=== PATIENT | female | born 1960 | race African-American/Black ===

== ENCOUNTER 2022-10-28 13:38 | Inpatient (IN) | payer MEDICAID ==
[~2022-10-28] VITALS: Ht 160 cm; Wt 95.9 kg
[~2022-10-28 13:38] MED LIST: ALBU0.0912 INH; AMLO5TAB PO; BECL10.62 INH; CALC-1646 PO; LOSA-272 PO; METF-346 PO; MULT-2253 PO; PRED20TA5 PO; TAM75 PO
[2022-10-28 13:47] VITALS: BP 142/95; PULSE 80; RESP 22; TEMP 97.9; O2SAT 94
[2022-10-28] MEDS ORDERED: ALBUTEROL 0.083% 2.5 MG/3 ML NEBU INH ONE ×2 (14:00→15:55)
[2022-10-28] MEDS ORDERED: predniSONE 20 MG TAB PO ONE (14:00)
[2022-10-28] MEDS ORDERED: ALBUTEROL SULFATE/IPRATROPIU 3 ML SOL IH ONE (14:00)
[2022-10-28 14:11] VITALS: PULSE 71; RESP 20; O2SAT 93
[2022-10-28] MEDS ORDERED: IPRATROPIUM 0.02% 0.5 MG/2.5 ML NEBU INH ONE (15:55)
[2022-10-28] MEDS ORDERED: MAG SULF 2000 MG/WATER PREMIX 50 ML IV ONE (15:55)
[2022-10-28] MEDS ORDERED: methylPREDNISolone SS 125 MG/2 ML VIAL IVP ONE (15:55)
[2022-10-28] MEDS ORDERED: NACL 0.9% 1,000 ML IV ONE (15:55)
[2022-10-28 17:01] LABS: BASOPHILS % (AUTO) 0.6 % (0.0-2.0); EOSINOPHILS # (AUTO) 0.2 K/uL (0-0.4); EOSINOPHILS % (AUTO) 2.2 % (0.0-4.0); HEMATOCRIT 40.2 % (36-48); HEMOGLOBIN 13.3 g/dL (12.0-16.0); LYMPHOCYTES # (AUTO) 0.8 K/uL (2.5-16.5); LYMPHOCYTES % (AUTO) 11.6 % (20.5-51.1); MEAN CORPUSCULAR HEMOGLOBIN 29 pg (27-31); MEAN CORPUSCULAR HGB CONC 33 g/dL (33-37); MEAN CORPUSCULAR VOLUME 88.3 fL (80-94); MONOCYTES # (AUTO) 0.2 K/uL (0.8-1.0); MONOCYTES % (AUTO) 2.1 % (1.7-9.3); NEUTROPHILS # (AUTO) 6.1 K/uL (1.8-7.7); NEUTROPHILS % (AUTO) 83.5 % (42.2-75.2); PLATELET COUNT (AUTO) 173 K/uL (140-450); RED BLOOD CELL COUNT(AUTO) 4.55 MIL/uL (4.20-5.40); RED CELL DISTRIBUTION WIDTH 16.2 % (11.6-13.7); WHITE BLOOD COUNT (AUTO) 7.3 K/uL (4.8-10.8)
[2022-10-28 17:24] LABS: ALBUMIN 3.5 g/dL (3.4-5.0); ANION GAP 14.7 (8-16); CALCIUM 8.9 mg/dL (8.5-10.1); CREATININE 1.1 mg/dL (0.6-1.3); POTASSIUM 3.7 mmol/L (3.5-5.1); TOTAL BILIRUBIN 0.2 mg/dL (0.0-1.0); TOTAL PROTEIN, SERUM 7.6 g/dL (6.4-8.2)
[2022-10-28 18:37] VITALS: BP 156/87; PULSE 83; RESP 18; TEMP 96.7
[2022-10-28] MEDS ORDERED: ONDANSETRON 4 MG TAB PO PRN (18:40)
[2022-10-28 18:45] VITALS: PULSE 72; PULSE 73; RESP 18; O2SAT 92
[2022-10-28] MEDS: ALBUTEROL SULFATE/IPRATROPIU 3 ML SOL IH SCH ×2 (18:55→21:56)
[2022-10-28 18:56] LABS: FLU A ANTIGEN negative (NEGATIVE); FLU B ANTIGEN NEGATIVE (NEGATIVE)
[2022-10-28 19:00] VITALS: PULSE 83; RESP 18; O2SAT 94
[2022-10-28 21:56] VITALS: PULSE 84; RESP 16; O2SAT 92
[2022-10-28] MEDS ORDERED: DEXTROSE 50% 50 ML SYR IVP PRN (22:00)
[2022-10-29] VITALS (7 sets, daily range): BP systolic 142–155; BP diastolic 79–92; PULSE 65–88; RESP 16–18; TEMP 97.1–97.6; O2SAT 92–98
[2022-10-29] MEDS: ALBUTEROL SULFATE/IPRATROPIU 3 ML SOL IH SCH ×4 (03:32→13:55)
[2022-10-29] MEDS: INSULIN LISPRO SLIDING SCALE 100 UNITS/ML VIAL SUBQ PRN ×2 (06:31→11:15)
[2022-10-29] MEDS: BLOOD GLUCOSE MONITORING 1 DEV DEV FS SCH ×3 (06:31→15:57)
[2022-10-29 06:37] LABS: BASOPHILS % (AUTO) 0.1 % (0.0-2.0); HEMOGLOBIN 12.3 g/dL (12.0-16.0); LYMPHOCYTES # (AUTO) 0.9 K/uL (2.5-16.5); LYMPHOCYTES % (AUTO) 13.2 % (20.5-51.1); MEAN CORPUSCULAR HEMOGLOBIN 29 pg (27-31); MEAN CORPUSCULAR HGB CONC 33 g/dL (33-37); MEAN CORPUSCULAR VOLUME 88.2 fL (80-94); MONOCYTES # (AUTO) 0.2 K/uL (0.8-1.0); MONOCYTES % (AUTO) 2.6 % (1.7-9.3); NEUTROPHILS % (AUTO) 84.1 % (42.2-75.2); PLATELET COUNT (AUTO) 161 K/uL (140-450); RED BLOOD CELL COUNT(AUTO) 4.19 MIL/uL (4.20-5.40); WHITE BLOOD COUNT (AUTO) 7.2 K/uL (4.8-10.8)
[2022-10-29] MEDS ORDERED: BUDESONIDE 0.25 MG/2 ML NEBU INH SCH (09:00)
[2022-10-29] MEDS ORDERED: LOSARTAN 50 MG TAB PO SCH (09:00)
[2022-10-29] MEDS ORDERED: INSULIN LISPRO 100 UNITS/ML VIAL SUBQ SCH (12:00)
[2022-10-29] MEDS ORDERED: AZITHROMYCIN 250 MG TAB PO SCH (14:00)
[2022-10-29] MEDS ORDERED: BUDE1AER IH (16:01)
[2022-10-29] MEDS ORDERED: SITA25TA3 PO (16:05)
[2022-10-29] MEDS ORDERED: AZIT250T3 PO (16:08)
[2022-10-29] MEDS ORDERED: PRED20TA5 PO (16:09)
[2022-10-31] MEDS ORDERED: INSU100S22 SUBQ (09:48)
[2022-10-31] MEDS ORDERED: GLUC-404 INH (09:53)
== END 2022-10-29 17:10 | disposition home or self-care (01) | DRG 140 ==
LOC: MED 13:38 → MTU 18:04
PROVIDERS: ADMIT Internal Medicine; ATTEND Internal Medicine
DX: J44.1 Chronic obstructive pulmonary disease with (acute) exacerbation (principal); J45.901 Unspecified asthma with (acute) exacerbation; E11.65 Type 2 diabetes mellitus with hyperglycemia; F17.210 Nicotine dependence, cigarettes, uncomplicated; R06.03 Acute respiratory distress; Z20.822 Contact with and (suspected) exposure to COVID-19; T38.0X5A Adverse effect of glucocorticoids and synthetic analogues, initial encounter; I10 Essential (primary) hypertension; Z88.5 Allergy status to narcotic agent; Z79.899 Other long term (current) drug therapy; Y92.89 Other specified places as the place of occurrence of the external cause
CPT/HCPCS: 36415; 71045; 80053; 82948; 83036; 83880; 84484; 85025; 87081; 93005; 94640; 96361; 96374; 96375; 99285; J1815; J2930; J3475; J7512; J7613; J7626

== ENCOUNTER 2022-12-10 01:45 | Inpatient (IN) | payer MEDICAID ==
[~2022-12-10] VITALS: Ht 160 cm; Wt 95.3 kg
[2022-12-10] VITALS (12 sets, daily range): BP systolic 147–151; BP diastolic 80–95; PULSE 75–84; RESP 18–32; TEMP 96.5–97.6; O2SAT 90–98
[~2022-12-10 01:45] MED LIST changes: +AZIT250T3 PO; +BUDE1AER IH; +GLUC-404 INH; +INSU100S22 SUBQ; +SITA25TA3 PO; -TAM75 PO
[2022-12-10] MEDS ORDERED: ALBUTEROL 0.083% 2.5 MG/3 ML NEBU INH ONE (01:50)
[2022-12-10] MEDS ORDERED: predniSONE 20 MG TAB PO ONE (01:50)
[2022-12-10] MEDS ORDERED: ALBUTEROL SULFATE/IPRATROPIU 3 ML SOL IH ONE (01:50)
[2022-12-10] MEDS ORDERED: methylPREDNISolone SS 125 MG/2 ML VIAL IVP ONE (01:55)
[2022-12-10 02:06] LABS: BASOPHILS # (AUTO) 0.1 K/uL (0.00-0.22); BASOPHILS % (AUTO) 1.3 % (0.0-2.0); EOSINOPHILS # (AUTO) 0.5 K/uL (0-0.4); EOSINOPHILS % (AUTO) 6.6 % (0.0-4.0); HEMATOCRIT 39.5 % (36-48); LYMPHOCYTES # (AUTO) 3.2 K/uL (2.5-16.5); LYMPHOCYTES % (AUTO) 44.3 % (20.5-51.1); MEAN CORPUSCULAR HEMOGLOBIN 29 pg (27-31); MEAN CORPUSCULAR HGB CONC 33 g/dL (33-37); MEAN CORPUSCULAR VOLUME 88.7 fL (80-94); MONOCYTES # (AUTO) 0.5 K/uL (0.8-1.0); MONOCYTES % (AUTO) 6.4 % (1.7-9.3); NEUTROPHILS % (AUTO) 41.4 % (42.2-75.2); PLATELET COUNT (AUTO) 173 K/uL (140-450); RED BLOOD CELL COUNT(AUTO) 4.45 MIL/uL (4.20-5.40); RED CELL DISTRIBUTION WIDTH 16.3 % (11.6-13.7); WHITE BLOOD COUNT (AUTO) 7.3 K/uL (4.8-10.8)
[2022-12-10 02:25] LABS: ALANINE AMINOTRANSFERASE 20 U/L (12-78); ALBUMIN 3.6 g/dL (3.4-5.0); ALKALINE PHOSPHATASE 85 U/L (50-136); ANION GAP 11.7 (8-16); ASPARTATE AMINOTRANSFERASE 15 U/L (15-37); CARBON DIOXIDE 30.5 mmol/L (21-32); CHLORIDE 106 mmol/L (98-107); CREATININE 1.1 mg/dL (0.6-1.3); GFR ARICAN-AMERICAN 65 mL/min (>90); GFR NON ARICAN-AMERICAN 53 mL/min (>90); GLUCOSE 130 mg/dL (74-106); POTASSIUM 3.2 mmol/L (3.5-5.1); SODIUM SERUM 145 mmol/L (136-145); TOTAL BILIRUBIN 0.3 mg/dL (0.0-1.0); TOTAL PROTEIN, SERUM 7.6 g/dL (6.4-8.2); UREA NITROGEN, BLOOD 22 mg/dL (7-18)
[2022-12-10] MEDS ORDERED: METF-346 PO (02:53)
[2022-12-10] MEDS ORDERED: DOCUSATE SODIUM 100 MG GELCAP PO PRN (04:10)
[2022-12-10] MEDS ORDERED: POTASSIUM CHLORIDE 10 MEQ TABER PO PRN (04:10)
[2022-12-10] MEDS ORDERED: NACL 0.9% 1,000 ML IV SCH (04:10)
[2022-12-10] MEDS ORDERED: ACETAMINOPHEN 325 MG TAB PO PRN (04:10)
[2022-12-10] MEDS ORDERED: ONDANSETRON 4 MG/2 ML VIAL IM/IVP PRN (04:10)
[2022-12-10] MEDS ORDERED: ZOLPIDEM 5 MG TAB PO PRN (04:10)
[2022-12-10] MEDS: ALBUTEROL SULFATE/IPRATROPIU 3 ML SOL IH PRN ×2 (07:42→18:13)
[2022-12-10] MEDS ORDERED: DEXTROSE 50% 50 ML SYR IVP PRN (07:55)
[2022-12-10] MEDS ORDERED: LOSARTAN 50 MG TAB PO SCH (09:00)
[2022-12-10] MEDS: PANTOPRAZOLE 40 MG TABEC PO SCH (09:48)
[2022-12-10] MEDS: amLODIPine 5 MG TAB PO SCH (09:48)
[2022-12-10] MEDS: INSULIN LANTUS 100 UNITS/ML 10 ML VIAL SUBQ SCH (11:35)
[2022-12-10] MEDS: INSULIN LISPRO SLIDING SCALE 100 UNITS/ML VIAL SUBQ PRN ×2 (11:39→20:53)
[2022-12-10] MEDS: BLOOD GLUCOSE MONITORING 1 DEV DEV FS SCH ×3 (11:43→20:46)
[2022-12-10] MEDS: guaiFENesin DM 200/20 MG-10 ML 10 ML UDC PO PRN ×2 (12:39→20:40)
[2022-12-10] MEDS: metFORMIN 500 MG TAB PO SCH (17:50)
[2022-12-10] MEDS: BUDESONIDE 0.5 MG/2 ML NEBU INH SCH (19:30)
[2022-12-11] VITALS (7 sets, daily range): BP systolic 154–155; BP diastolic 94–98; PULSE 57–71; RESP 16–20; TEMP 96.9–97.5; O2SAT 93–100
[2022-12-11] MEDS: ALBUTEROL SULFATE/IPRATROPIU 3 ML SOL IH PRN (02:57)
[2022-12-11] MEDS: BLOOD GLUCOSE MONITORING 1 DEV DEV FS SCH ×3 (06:39→16:30)
[2022-12-11 07:04] LABS: BASOPHILS % (AUTO) 0.4 % (0.0-2.0); EOSINOPHILS # (AUTO) 0.2 K/uL (0-0.4); HEMOGLOBIN 11.5 g/dL (12.0-16.0); LYMPHOCYTES # (AUTO) 2.3 K/uL (2.5-16.5); LYMPHOCYTES % (AUTO) 28.7 % (20.5-51.1); MEAN CORPUSCULAR HEMOGLOBIN 29 pg (27-31); MEAN CORPUSCULAR HGB CONC 33 g/dL (33-37); MEAN CORPUSCULAR VOLUME 88.2 fL (80-94); MONOCYTES # (AUTO) 0.6 K/uL (0.8-1.0); MONOCYTES % (AUTO) 7.9 % (1.7-9.3); PLATELET COUNT (AUTO) 169 K/uL (140-450); RED BLOOD CELL COUNT(AUTO) 3.97 MIL/uL (4.20-5.40); RED CELL DISTRIBUTION WIDTH 16.3 % (11.6-13.7); WHITE BLOOD COUNT (AUTO) 8.2 K/uL (4.8-10.8)
[2022-12-11 07:09] LABS: CALCIUM 8.1 mg/dL (8.5-10.1); CARBON DIOXIDE 26.1 mmol/L (21-32); POTASSIUM 4.1 mmol/L (3.5-5.1)
[2022-12-11] MEDS: BUDESONIDE 0.5 MG/2 ML NEBU INH SCH (08:08)
[2022-12-11] MEDS: metFORMIN 500 MG TAB PO SCH ×2 (08:33→17:37)
[2022-12-11] MEDS: guaiFENesin DM 200/20 MG-10 ML 10 ML UDC PO PRN ×2 (08:33→15:18)
[2022-12-11] MEDS: PANTOPRAZOLE 40 MG TABEC PO SCH (08:42)
[2022-12-11] MEDS: amLODIPine 5 MG TAB PO SCH (08:42)
[2022-12-11] MEDS: INSULIN LANTUS 100 UNITS/ML 10 ML VIAL SUBQ SCH (08:46)
[2022-12-11] MEDS ORDERED: LOSARTAN 50 MG TAB PO SCH (09:00)
[2022-12-11] MEDS: INSULIN LISPRO SLIDING SCALE 100 UNITS/ML VIAL SUBQ PRN (11:39)
[2022-12-11] MEDS ORDERED: [UNRECOGNIZED DRUG - CODE] MC (12:45)
[2022-12-11] MEDS ORDERED: ALBU3SOL83 IH (12:45)
[2022-12-11] MEDS ORDERED: GUAI-920 PO (12:50)
[2022-12-11] MEDS ORDERED: PRED20TA5 PO (12:50)
[2022-12-11] MEDS ORDERED: methylPREDNISolone SS 40 MG/ML VIAL IVP SCH (14:45)
== END 2022-12-11 18:45 | disposition home or self-care (01) | DRG 140 ==
LOC: MED 01:45 → EDBD 01:45 → MTU 04:13
PROVIDERS: ADMIT Student in an Organized Health Care Education/Training Program; ATTEND Student in an Organized Health Care Education/Training Program
DX: J44.1 Chronic obstructive pulmonary disease with (acute) exacerbation (principal); J96.01 Acute respiratory failure with hypoxia; J45.901 Unspecified asthma with (acute) exacerbation; F17.210 Nicotine dependence, cigarettes, uncomplicated; Z88.5 Allergy status to narcotic agent; Z79.899 Other long term (current) drug therapy
CPT/HCPCS: 36415; 71045; 80048; 80053; 82948; 84484; 85025; 87081; 93005; 94010; 94617; 94640; 96374; 97116; 97163-GP; 99285; J1815; J2920; J2930; J7613; J7626

== ENCOUNTER 2022-12-22 17:29 | Inpatient (IN) | payer MEDICAID ==
[~2022-12-22] VITALS: Ht 162.6 cm; Wt 96.6 kg
[~2022-12-22 17:29] MED LIST changes: +ALBU3SOL83 IH; -AZIT250T3 PO; -CALC-1646 PO; +GUAI-920 PO; +[UNRECOGNIZED DRUG - CODE] MC
[2022-12-22 17:30] VITALS: BP 160/93; PULSE 98; RESP 29; TEMP 97.7; O2SAT 99
[2022-12-22] MEDS ORDERED: methylPREDNISolone SS 125 MG/2 ML VIAL ONE (17:32)
[2022-12-22] MEDS ORDERED: MAG SULF 2000 MG/WATER PREMIX 50 ML IV ONE ×2 (17:32→17:35)
[2022-12-22] MEDS ORDERED: IPRATROPIUM 0.02% 0.5 MG/2.5 ML NEBU INH ONE (17:35)
[2022-12-22] MEDS ORDERED: ALBUTEROL 0.083% 2.5 MG/3 ML NEBU INH ONE (17:35)
[2022-12-22] MEDS ORDERED: methylPREDNISolone SS 125 MG/2 ML VIAL IVP ONE (17:35)
[2022-12-22 17:37] VITALS: PULSE 101; RESP 33; O2SAT 96
[2022-12-22 17:51] LABS: BASOPHILS # (AUTO) 0.1 K/uL (0.00-0.22); BASOPHILS % (AUTO) 0.6 % (0.0-2.0); EOSINOPHILS # (AUTO) 0.5 K/uL (0-0.4); EOSINOPHILS % (AUTO) 3.8 % (0.0-4.0); HEMATOCRIT 39.9 % (36-48); HEMOGLOBIN 13.2 g/dL (12.0-16.0); LYMPHOCYTES # (AUTO) 4.2 K/uL (2.5-16.5); LYMPHOCYTES % (AUTO) 32.3 % (20.5-51.1); MEAN CORPUSCULAR HEMOGLOBIN 29 pg (27-31); MEAN CORPUSCULAR HGB CONC 33 g/dL (33-37); MEAN CORPUSCULAR VOLUME 88.2 fL (80-94); MONOCYTES # (AUTO) 0.9 K/uL (0.8-1.0); NEUTROPHILS # (AUTO) 7.4 K/uL (1.8-7.7); NEUTROPHILS % (AUTO) 56.3 % (42.2-75.2); PLATELET COUNT (AUTO) 183 K/uL (140-450); RED BLOOD CELL COUNT(AUTO) 4.52 MIL/uL (4.20-5.40); RED CELL DISTRIBUTION WIDTH 16.1 % (11.6-13.7); WHITE BLOOD COUNT (AUTO) 13.1 K/uL (4.8-10.8)
[2022-12-22 18:07] LABS: FLU A ANTIGEN negative (NEGATIVE); FLU B ANTIGEN negative (NEGATIVE)
[2022-12-22] MEDS ORDERED: AZITHROMYCIN 500 MG in DEXTROSE 5% 250 ML IV ONE (18:10)
[2022-12-22 18:21] LABS: ALBUMIN 3.7 g/dL (3.4-5.0); ANION GAP 15.1 (8-16); CALCIUM 9.2 mg/dL (8.5-10.1); CARBON DIOXIDE 27.7 mmol/L (21-32); CREATININE 1.7 mg/dL (0.6-1.3); POTASSIUM 3.8 mmol/L (3.5-5.1); TOTAL BILIRUBIN 0.3 mg/dL (0.0-1.0); TOTAL PROTEIN, SERUM 7.5 g/dL (6.4-8.2)
[2022-12-22] MEDS ORDERED: cefTRIAXone 1,000 MG VIAL ONE (18:35)
[2022-12-22] MEDS ORDERED: AZITHROMYCIN 500 MG INJ VIAL IV ONE (18:36)
[2022-12-22] MEDS ORDERED: NACL 0.9% 2,000 ML IV ONE (18:45)
[2022-12-22 20:15] LABS: LACTIC ACID 1.6 mmol/L (0.4-2.0)
[2022-12-22] MEDS ORDERED: ALBUTEROL SULFATE/IPRATROPIU 3 ML SOL IH ONE (21:25)
[2022-12-22 21:27] VITALS: PULSE 83; RESP 18; O2SAT 95
[2022-12-22] MEDS ORDERED: POTASSIUM CHLORIDE 10 MEQ TABER PO PRN (21:55)
[2022-12-22] MEDS ORDERED: ALBUTEROL SULFATE/IPRATROPIU 3 ML SOL IH PRN (21:55)
[2022-12-22] MEDS ORDERED: DOCUSATE SODIUM 100 MG GELCAP PO PRN (21:55)
[2022-12-22] MEDS ORDERED: NACL 0.9% 1,000 ML IV SCH (21:55)
[2022-12-22] MEDS ORDERED: ONDANSETRON 4 MG/2 ML VIAL IM/IVP PRN (21:55)
[2022-12-22] MEDS ORDERED: ZOLPIDEM 5 MG TAB PO PRN (21:55)
[2022-12-22] MEDS ORDERED: ACETAMINOPHEN 325 MG TAB PO PRN (21:55)
[2022-12-22] MEDS ORDERED: INSU100S22 SUBQ (22:40)
[2022-12-22 22:47] VITALS: PULSE 73; RESP 22; O2SAT 95
[2022-12-22 22:50] VITALS: BP 143/79; PULSE 73; RESP 22; TEMP 97; O2SAT 95
[2022-12-22 22:52] VITALS: PULSE 94
[2022-12-23] VITALS (13 sets, daily range): BP systolic 140–165; BP diastolic 80–97; PULSE 68–85; RESP 16–24; TEMP 96.9–97.9; O2SAT 94–99
[2022-12-23 05:44] LABS: ALBUMIN 3.2 g/dL (3.4-5.0); CALCIUM 8.3 mg/dL (8.5-10.1); CARBON DIOXIDE 24.2 mmol/L (21-32); CREATININE 1.3 mg/dL (0.6-1.3); POTASSIUM 4.2 mmol/L (3.5-5.1); TOTAL BILIRUBIN 0.2 mg/dL (0.0-1.0); TOTAL PROTEIN, SERUM 6.9 g/dL (6.4-8.2)
[2022-12-23 05:47] LABS: BASOPHILS % (AUTO) 0.1 % (0.0-2.0); HEMOGLOBIN 12.1 g/dL (12.0-16.0); LYMPHOCYTES # (AUTO) 0.6 K/uL (2.5-16.5); LYMPHOCYTES % (AUTO) 8.5 % (20.5-51.1); MEAN CORPUSCULAR HEMOGLOBIN 30 pg (27-31); MEAN CORPUSCULAR HGB CONC 33 g/dL (33-37); MONOCYTES # (AUTO) 0.1 K/uL (0.8-1.0); MONOCYTES % (AUTO) 0.8 % (1.7-9.3); NEUTROPHILS # (AUTO) 6.9 K/uL (1.8-7.7); NEUTROPHILS % (AUTO) 90.6 % (42.2-75.2); PLATELET COUNT (AUTO) 168 K/uL (140-450); RED BLOOD CELL COUNT(AUTO) 4.12 MIL/uL (4.20-5.40); RED CELL DISTRIBUTION WIDTH 16.3 % (11.6-13.7); WHITE BLOOD COUNT (AUTO) 7.6 K/uL (4.8-10.8)
[2022-12-23] MEDS: ALBUTEROL SULFATE/IPRATROPIU 3 ML SOL IH SCH ×3 (08:01→18:55)
[2022-12-23] MEDS ORDERED: AZITHROMYCIN 250 MG TAB PO SCH (09:00)
[2022-12-23] MEDS ORDERED: DEXTROSE 50% 50 ML SYR IVP PRN (09:10)
[2022-12-23] MEDS: PANTOPRAZOLE 40 MG TABEC PO SCH (10:14)
[2022-12-23] MEDS: INSULIN LANTUS 100 UNITS/ML 10 ML VIAL SUBQ SCH (10:17)
[2022-12-23] MEDS: amLODIPine 5 MG TAB PO SCH (10:20)
[2022-12-23] MEDS: LOSARTAN 50 MG TAB PO SCH (10:20)
[2022-12-23] MEDS: BLOOD GLUCOSE MONITORING 1 DEV DEV FS SCH ×3 (11:30→20:30)
[2022-12-23] MEDS: INSULIN LISPRO SLIDING SCALE 100 UNITS/ML VIAL SUBQ PRN ×2 (13:44→17:08)
[2022-12-23] MEDS: BUDESONIDE 0.25 MG/2 ML NEBU INH SCH ×2 (13:49→19:07)
[2022-12-24] VITALS (12 sets, daily range): BP systolic 139–165; BP diastolic 77–97; PULSE 60–85; RESP 18–26; TEMP 97.6–98.2; O2SAT 93–99
[2022-12-24 05:36] LABS: BASOPHILS % (AUTO) 0.3 % (0.0-2.0); EOSINOPHILS # (AUTO) 0.1 K/uL (0-0.4); EOSINOPHILS % (AUTO) 1.7 % (0.0-4.0); HEMATOCRIT 33.9 % (36-48); HEMOGLOBIN 11.3 g/dL (12.0-16.0); LYMPHOCYTES % (AUTO) 26.6 % (20.5-51.1); MEAN CORPUSCULAR HEMOGLOBIN 30 pg (27-31); MEAN CORPUSCULAR HGB CONC 33 g/dL (33-37); MEAN CORPUSCULAR VOLUME 89.6 fL (80-94); MONOCYTES # (AUTO) 0.5 K/uL (0.8-1.0); MONOCYTES % (AUTO) 6.7 % (1.7-9.3); NEUTROPHILS # (AUTO) 4.9 K/uL (1.8-7.7); NEUTROPHILS % (AUTO) 64.7 % (42.2-75.2); PLATELET COUNT (AUTO) 165 K/uL (140-450); RED BLOOD CELL COUNT(AUTO) 3.79 MIL/uL (4.20-5.40); WHITE BLOOD COUNT (AUTO) 7.6 K/uL (4.8-10.8)
[2022-12-24 05:52] LABS: ANION GAP 12.5 (8-16); CREATININE 1.2 mg/dL (0.6-1.3); POTASSIUM 3.5 mmol/L (3.5-5.1)
[2022-12-24] MEDS: BLOOD GLUCOSE MONITORING 1 DEV DEV FS SCH ×4 (07:01→20:32)
[2022-12-24] MEDS: BUDESONIDE 0.25 MG/2 ML NEBU INH SCH ×2 (07:50→19:39)
[2022-12-24] MEDS: ALBUTEROL SULFATE/IPRATROPIU 3 ML SOL IH SCH ×3 (07:50→19:32)
[2022-12-24] MEDS ORDERED: PANTOPRAZOLE 40 MG INJ VIAL IVP SCH (09:00)
[2022-12-24] MEDS: methylPREDNISolone SS 40 MG/ML VIAL IVP SCH ×2 (09:35→20:33)
[2022-12-24] MEDS: amLODIPine 5 MG TAB PO SCH (09:35)
[2022-12-24] MEDS: LOSARTAN 50 MG TAB PO SCH ×2 (09:35→22:00)
[2022-12-24] MEDS: DOXYCYCLINE 100 MG CAP PO SCH ×2 (09:35→20:33)
[2022-12-24] MEDS: PANTOPRAZOLE 40 MG TABEC PO SCH (09:35)
[2022-12-24] MEDS: ENOXAPARIN 40 MG/0.4 ML SYR SUBQ SCH (09:38)
[2022-12-24] MEDS: INSULIN LANTUS 100 UNITS/ML 10 ML VIAL SUBQ SCH (09:43)
[2022-12-24] MEDS: INSULIN LISPRO SLIDING SCALE 100 UNITS/ML VIAL SUBQ PRN ×2 (11:53→17:53)
[2022-12-24] MEDS: guaiFENesin DM 200/20 MG-10 ML 10 ML UDC PO PRN ×2 (14:50→22:01)
[2022-12-24] MEDS ORDERED: LOSARTAN 50 MG TAB ONE (21:54)
[2022-12-25] VITALS: BP 145/76; PULSE 65; PULSE 68; RESP 18; TEMP 97.1; O2SAT 99
[2022-12-25 04:00] VITALS: BP 142/82; PULSE 65; PULSE 69; RESP 18; TEMP 98.4; O2SAT 97
[2022-12-25 06:03] LABS: ANION GAP 15.3 (8-16); CALCIUM 7.8 mg/dL (8.5-10.1); CARBON DIOXIDE 23.2 mmol/L (21-32); CREATININE 1.1 mg/dL (0.6-1.3); POTASSIUM 4.5 mmol/L (3.5-5.1)
[2022-12-25] MEDS: BLOOD GLUCOSE MONITORING 1 DEV DEV FS SCH (06:34)
[2022-12-25] MEDS: INSULIN LISPRO SLIDING SCALE 100 UNITS/ML VIAL SUBQ PRN (06:39)
[2022-12-25 07:55] VITALS: PULSE 60; RESP 24; O2SAT 98
[2022-12-25] MEDS: BUDESONIDE 0.25 MG/2 ML NEBU INH SCH (07:57)
[2022-12-25] MEDS: ALBUTEROL SULFATE/IPRATROPIU 3 ML SOL IH SCH (07:57)
[2022-12-25 08:00] VITALS: BP 158/82; PULSE 62; PULSE 64; RESP 18; TEMP 97.6; O2SAT 97; O2SAT 99
[2022-12-25 08:05] VITALS: PULSE 62; RESP 22; O2SAT 100
[2022-12-25] MEDS: PANTOPRAZOLE 40 MG TABEC PO SCH (08:30)
[2022-12-25] MEDS: DOXYCYCLINE 100 MG CAP PO SCH (08:31)
[2022-12-25] MEDS: methylPREDNISolone SS 40 MG/ML VIAL IVP SCH (08:31)
[2022-12-25] MEDS: ENOXAPARIN 40 MG/0.4 ML SYR SUBQ SCH (08:31)
[2022-12-25] MEDS: LOSARTAN 50 MG TAB PO SCH (08:31)
[2022-12-25] MEDS: amLODIPine 5 MG TAB PO SCH (08:31)
[2022-12-25] MEDS: INSULIN LANTUS 100 UNITS/ML 10 ML VIAL SUBQ SCH (08:32)
[2022-12-25] MEDS ORDERED: ALBU0.0912 INH (09:55)
[2022-12-25] MEDS ORDERED: DOXY-690 PO (09:55)
[2022-12-25] MEDS ORDERED: PRED20TA5 PO (09:55)
== END 2022-12-25 12:00 | disposition home or self-care (01) | DRG 140 ==
LOC: MED 17:29 → MTU 21:56
PROVIDERS: ADMIT Student in an Organized Health Care Education/Training Program; ATTEND Student in an Organized Health Care Education/Training Program
DX: J44.1 Chronic obstructive pulmonary disease with (acute) exacerbation (principal); J96.01 Acute respiratory failure with hypoxia; R65.11 Systemic inflammatory response syndrome (SIRS) of non-infectious origin with acute organ dysfunction; N17.9 Acute kidney failure, unspecified; J45.901 Unspecified asthma with (acute) exacerbation; F17.210 Nicotine dependence, cigarettes, uncomplicated; I10 Essential (primary) hypertension; Z20.822 Contact with and (suspected) exposure to COVID-19; E11.9 Type 2 diabetes mellitus without complications; Z79.899 Other long term (current) drug therapy; Z88.5 Allergy status to narcotic agent; Z88.8 Allergy status to other drugs, medicaments and biological substances
CPT/HCPCS: 36415; 71045; 80048; 80053; 83605; 83880; 84484; 85025; 87081; 93005; 94010; 94640; 96365; 96367; 99291; C9113; J0456; J0696; J1650; J1815; J2920; J2930; J3475; J7626

== ENCOUNTER 2023-09-17 20:04 | Inpatient (IN) | payer MEDICAID ==
[~2023-09-17] VITALS: Ht 162.6 cm; Wt 104.3 kg
[~2023-09-17 20:04] MED LIST changes: -ALBU0.0912 INH; +ALBU2.5V NEB; +AMLO-3 PO; -AMLO5TAB PO; -BUDE1AER IH; +FLAS1KIT3; -GUAI-920 PO; +LEVO750T75 PO; -LOSA-272 PO; +LOSA100T52 PO; +METF-1139 PO; -METF-346 PO; +PANT40EC56 PO; +TAM75 PO; -[UNRECOGNIZED DRUG - CODE] MC
[2023-09-17 20:17] VITALS: BP 156/94; PULSE 80; RESP 22; TEMP 98.8; O2SAT 94
[2023-09-17 20:27] VITALS: PULSE 78; PULSE 79; RESP 17; RESP 20; O2SAT 93
[2023-09-17] MEDS: ALBUTEROL 0.083% 2.5 MG/3 ML NEBU INH ONE ×2 (20:27→22:29)
[2023-09-17 20:28] VITALS: O2SAT 98
[2023-09-17] MEDS ORDERED: CEFEPIME 1,000 MG VIAL ONE (21:02)
[2023-09-17] MEDS ORDERED: AZITHROMYCIN 500 MG INJ VIAL IV ONE (21:03)
[2023-09-17 21:37] LABS: ANION GAP 14.5 (8-16); CARBON DIOXIDE 26.7 mmol/L (21-32); CREATININE 1.1 mg/dL (0.6-1.3); POTASSIUM 3.2 mmol/L (3.5-5.1)
[2023-09-17 21:41] LABS: BILIRUBIN,DIRECT 0.1 mg/dL (0.0-0.3); TOTAL BILIRUBIN 0.4 mg/dL (0.0-1.0); TOTAL PROTEIN, SERUM 7.6 g/dL (6.4-8.2)
[2023-09-17] MEDS ORDERED: WATER STERILE 10 ML MC ONE (21:41)
[2023-09-17] MEDS ORDERED: methylPREDNISolone SS 125 MG/2 ML VIAL ONE (21:41)
[2023-09-17 21:46] LABS: BASOPHILS % (AUTO) 0.2 % (0.0-2.0); EOSINOPHILS % (AUTO) 0.5 % (0.0-4.0); HEMATOCRIT 34.3 % (36-48); HEMOGLOBIN 11.3 g/dL (12.0-16.0); LYMPHOCYTES # (AUTO) 1.5 K/uL (2.5-16.5); MEAN CORPUSCULAR HEMOGLOBIN 28 pg (27-31); MEAN CORPUSCULAR HGB CONC 33 g/dL (33-37); MEAN CORPUSCULAR VOLUME 85.7 fL (80-94); MONOCYTES # (AUTO) 0.3 K/uL (0.8-1.0); MONOCYTES % (AUTO) 8.8 % (1.7-9.3); NEUTROPHILS % (AUTO) 51.5 % (42.2-75.2); PLATELET COUNT (AUTO) 126 K/uL (140-450); RED BLOOD CELL COUNT(AUTO) 4.01 MIL/uL (4.20-5.40); RED CELL DISTRIBUTION WIDTH 16.6 % (11.6-13.7)
[2023-09-17] MEDS: MAG SULF 2000 MG/WATER PREMIX 50 ML IV ONE (21:47)
[2023-09-17] MEDS: CEFEPIME 1,000 MG in DEXTROSE 5% 50 ML IV ONE (21:48)
[2023-09-17] MEDS: methylPREDNISolone SS 125 MG in WATER STERILE 2 ML IVP SCH (21:49)
[2023-09-17] MEDS: AZITHROMYCIN 500 MG in DEXTROSE 5% 250 ML IV ONE (21:49)
[2023-09-17] MEDS ORDERED: ALBUTEROL 0.083% 2.5 MG/3 ML NEBU INH ONE (22:27)
[2023-09-17] MEDS ORDERED: AMLO5TAB PO (22:31)
[2023-09-17] MEDS ORDERED: LOSA-272 PO (22:31)
[2023-09-17] MEDS ORDERED: CALC-1646 PO (22:31)
[2023-09-17] MEDS ORDERED: METF-1139 PO (22:31)
[2023-09-17] MEDS ORDERED: NOVN SUBQ (22:32)
[2023-09-17 22:36] VITALS: PULSE 64; RESP 24; O2SAT 94
[2023-09-17] MEDS ORDERED: ACETAMINOPHEN 325 MG TAB PO PRN (22:45)
[2023-09-17] MEDS ORDERED: guaiFENesin DM 200/20 MG-10 ML 10 ML UDC PO PRN (22:45)
[2023-09-17] MEDS ORDERED: DOCUSATE SODIUM 100 MG GELCAP PO PRN (22:45)
[2023-09-17] MEDS ORDERED: HYDROcodone/APAP 7.5/325 MG 1 TAB PO PRN (22:45)
[2023-09-17] MEDS ORDERED: ALBUTEROL SULFATE/IPRATROPIU 3 ML SOL IH PRN (22:45)
[2023-09-17] MEDS ORDERED: ONDANSETRON 4 MG/2 ML VIAL IM/IVP PRN (22:45)
[2023-09-17] MEDS ORDERED: ZOLPIDEM 5 MG TAB PO PRN (22:45)
[2023-09-17] MEDS ORDERED: DEXTROSE 50% 50 ML SYR IVP PRN (22:55)
[2023-09-17 23:26] LABS: FLU A ANTIGEN negative (NEGATIVE); FLU B ANTIGEN NEGATIVE (NEGATIVE)
[2023-09-17] MEDS: NACL 0.9% 1,000 ML IV SCH (23:43)
[2023-09-17] MEDS: POTASSIUM CHLORIDE 10 MEQ TABER PO PRN (23:52)
[2023-09-18] VITALS (13 sets, daily range): BP systolic 123–151; BP diastolic 75–93; PULSE 61–82; RESP 14–20; TEMP 96.8–98.2; O2SAT 93–98
[2023-09-18] MEDS: ALBUTEROL 0.083% 2.5 MG/3 ML NEBU INH SCH (01:43)
[2023-09-18] MEDS: BLOOD GLUCOSE MONITORING 1 DEV DEV FS SCH (06:35)
[2023-09-18 07:00] LABS: BASOPHILS % (AUTO) 0.2 % (0.0-2.0); HEMATOCRIT 38.2 % (36-48); HEMOGLOBIN 12.7 g/dL (12.0-16.0); LYMPHOCYTES # (AUTO) 0.5 K/uL (2.5-16.5); LYMPHOCYTES % (AUTO) 16.5 % (20.5-51.1); MEAN CORPUSCULAR HEMOGLOBIN 28 pg (27-31); MEAN CORPUSCULAR HGB CONC 33 g/dL (33-37); MEAN CORPUSCULAR VOLUME 85.4 fL (80-94); MONOCYTES # (AUTO) 0.1 K/uL (0.8-1.0); MONOCYTES % (AUTO) 2.8 % (1.7-9.3); NEUTROPHILS # (AUTO) 2.6 K/uL (1.8-7.7); NEUTROPHILS % (AUTO) 80.5 % (42.2-75.2); PLATELET COUNT (AUTO) 138 K/uL (140-450); RED BLOOD CELL COUNT(AUTO) 4.48 MIL/uL (4.20-5.40); RED CELL DISTRIBUTION WIDTH 16.6 % (11.6-13.7); WHITE BLOOD COUNT (AUTO) 3.2 K/uL (4.8-10.8)
[2023-09-18 07:27] LABS: ALBUMIN 2.9 g/dL (3.4-5.0); ANION GAP 14.2 (8-16); CALCIUM 8.7 mg/dL (8.5-10.1); CARBON DIOXIDE 25.6 mmol/L (21-32); CREATININE 1.2 mg/dL (0.6-1.3); POTASSIUM 3.8 mmol/L (3.5-5.1); TOTAL BILIRUBIN 0.4 mg/dL (0.0-1.0); TOTAL PROTEIN, SERUM 7.4 g/dL (6.4-8.2)
[2023-09-18] MEDS: LEVOFLOXACIN 500 MG/D5W PREMIX 100 ML IV SCH (08:55)
[2023-09-18] MEDS: LOSARTAN 50 MG TAB PO SCH (11:11)
[2023-09-18] MEDS: amLODIPine 5 MG TAB PO SCH (11:11)
[2023-09-18] MEDS: predniSONE 5 MG TAB PO SCH (11:11)
[2023-09-18] MEDS: PANTOPRAZOLE 40 MG TABEC PO SCH (11:11)
[2023-09-18] MEDS: INSULIN LISPRO SLIDING SCALE 100 UNITS/ML VIAL SUBQ PRN (11:29)
[2023-09-18] MEDS: BUDESONIDE 0.25 MG/2 ML NEBU INH PRN (19:41)
[2023-09-18] MEDS ORDERED: MUPIROCIN CA NASAL 2% 1GM TUBE NS SCH (21:00)
[2023-09-18] MEDS ORDERED: CHLORHEXADINE GLUC 2% CLOTH TP SCH (21:00)
[2023-09-19] VITALS (11 sets, daily range): BP systolic 139–149; BP diastolic 75–88; PULSE 60–93; RESP 16–18; TEMP 97.1–98; O2SAT 93–100
[2023-09-19 06:29] LABS: BASOPHILS % (AUTO) 0.1 % (0.0-2.0); EOSINOPHILS % (AUTO) 0.1 % (0.0-4.0); HEMATOCRIT 35.3 % (36-48); HEMOGLOBIN 11.8 g/dL (12.0-16.0); LYMPHOCYTES # (AUTO) 1.9 K/uL (2.5-16.5); LYMPHOCYTES % (AUTO) 40.5 % (20.5-51.1); MEAN CORPUSCULAR HEMOGLOBIN 28 pg (27-31); MEAN CORPUSCULAR HGB CONC 33 g/dL (33-37); MONOCYTES # (AUTO) 0.5 K/uL (0.8-1.0); MONOCYTES % (AUTO) 11.4 % (1.7-9.3); NEUTROPHILS # (AUTO) 2.3 K/uL (1.8-7.7); NEUTROPHILS % (AUTO) 47.9 % (42.2-75.2); PLATELET COUNT (AUTO) 145 K/uL (140-450); RED BLOOD CELL COUNT(AUTO) 4.15 MIL/uL (4.20-5.40); RED CELL DISTRIBUTION WIDTH 16.4 % (11.6-13.7); WHITE BLOOD COUNT (AUTO) 4.7 K/uL (4.8-10.8)
[2023-09-19 07:18] LABS: ALBUMIN 2.8 g/dL (3.4-5.0); ANION GAP 14.4 (8-16); CALCIUM 8.3 mg/dL (8.5-10.1); CARBON DIOXIDE 23.8 mmol/L (21-32); CREATININE 1.1 mg/dL (0.6-1.3); POTASSIUM 3.2 mmol/L (3.5-5.1); TOTAL BILIRUBIN 0.3 mg/dL (0.0-1.0); TOTAL PROTEIN, SERUM 6.9 g/dL (6.4-8.2)
[2023-09-19] MEDS ORDERED: IPRA3AMP2 IH (09:02)
[2023-09-19] MEDS ORDERED: METH4TAB1 PO (09:03)
[2023-09-19] MEDS ORDERED: AZIT250T3 PO (09:05)
[2023-09-19] MEDS ORDERED: PRON INH ×2 (09:06→09:09)
== END 2023-09-19 12:00 | disposition home or self-care (01) | DRG 140 ==
LOC: MED 20:04 → MMU 22:45 → MTU 23:28
PROVIDERS: ADMIT Student in an Organized Health Care Education/Training Program; ATTEND Student in an Organized Health Care Education/Training Program
DX: J44.1 Chronic obstructive pulmonary disease with (acute) exacerbation (principal); J96.00 Acute respiratory failure, unspecified whether with hypoxia or hypercapnia; E44.0 Moderate protein-calorie malnutrition; Z20.822 Contact with and (suspected) exposure to COVID-19; E11.9 Type 2 diabetes mellitus without complications; I10 Essential (primary) hypertension; Z68.39 Body mass index [BMI] 39.0-39.9, adult; Z79.4 Long term (current) use of insulin; Z79.84 Long term (current) use of oral hypoglycemic drugs; Z79.51 Long term (current) use of inhaled steroids; Z79.899 Other long term (current) drug therapy; Z88.5 Allergy status to narcotic agent
CPT/HCPCS: 36415; 71045; 80048; 80053; 80076; 82948; 83690; 83880; 84484; 85025; 85379; 87040; 87081; 94640; 96365; 96366; 96368; 97116; 97163-GP; 99285; J0456; J0692; J1815; J1956; J2919; J3475; J7512; J7613; J7626